=== PATIENT | male | born 1960 | race Caucasian/White ===

== ENCOUNTER 2018-11-24 07:08 | Inpatient (IN) ==
[2018-11-18 15:20] LABS: Basophils # (Auto) 0.1 K/mcL (0.0-0.3); Eosinophils # (Auto) 0.3 K/mcL (0.0-0.7); Eosinophils % (Auto) 4.3 % (0.0-7.0); Granulocytes % (Auto) 62.8 % (38.0-78.0); Lymphocytes # (Auto) 1.3 K/mcL (1.5-4.8); Lymphocytes % (Auto) 22.4 % (15.5-49.0); Mean Cell Volume 89.9 fL (80.0-100.0); Mean Corpuscular HGB Conc 32.9 g/dL (31.0-36.0); Monocytes # (Auto) 0.6 K/mcL (0.1-0.9); Monocytes % (Auto) 9.5 % (1.0-12.0); Platelet Count 205 K/mcL (140-440); RBC 5.78 M/mcL (4.50-5.90); Red Cell Distribution Width 14.1 % (11.5-14.5)
[2018-11-18 15:30] LABS: Blood Urea Nitrogen 14 mg/dl (6-20)
[2018-11-18 16:18] LABS: Appearance,Urine CLEAR; Bacteria,Urine 0 /hpf (0); Bilirubin,Urine NEG (NEG); Color,Urine YELLOW; Glucose,Urine (UA) NEGATIVE (NEG); Leukocyte Esterase,Urine NEG /uL (NEG); Mucus,Urine FEW /hpf (0); Protein,Urine NEG (NEG); Specific Gravity,Urine 1.011 (1.000-1.035); Urine Blood 0.03 mg/dL (<0.03); Urine RBC 0 /hpf (0-1); Urine Squamous Epithelial Cell < 1 /hpf (0-4); Urine WBC < 1 /hpf (0-4); Urobilinogen,Urine NEG (NEG)
[~2018-11-24 07:08] MED LIST: 0.9 % SODIUM CHLORIDE 9 ML, KETOROLAC 30 MG, ROPIVACAINE HCL/PF 49.5 ML, EPINEPHrine 0.... IJ SCH; PREGABALIN 75 MG CAPSULE PO SCH; ceFAZolin 1 GM VIAL IV SCH; oxyCODONE 10 MG TAB.ER.12H PO SCH
[2018-11-24] MEDS ORDERED: PHENYLEPHRINE 10 MG/ML VIAL IV ONE (13:10)
[2018-11-24] MEDS ORDERED: ONDANSETRON 4 MG/2 ML VIAL IV ONE (13:10)
[2018-11-24] MEDS ORDERED: GLYCOPYRROLATE 0.2 MG/ML VIAL IV ONE (13:10)
[2018-11-24] MEDS ORDERED: DEXAMETHASONE 10 MG/ML VIAL IV ONE (13:10)
[2018-11-24] MEDS ORDERED: LIDOCAINE HCL/PF 100 MG/5 ML SYRINGE IV ONE (13:10)
[2018-11-24] MEDS ORDERED: TRANEXAMIC ACID 1,000 MG/10 ML VIAL IV ONE ×2 (13:10→15:09)
[2018-11-24] MEDS ORDERED: ROPIVACAINE HCL/PF 20 ML VIAL IJ ONE (13:10)
[2018-11-24] MEDS ORDERED: MIDAZOLAM 5 MG/5 ML VIAL IV ONE (13:10)
[2018-11-24] MEDS ORDERED: ePHEDrine 50 MG/ML AMPUL IV ONE (13:10)
[2018-11-24] MEDS ORDERED: KETAMINE 100 MG/ML ML IV ONE (13:10)
[2018-11-24] MEDS ORDERED: PROPOFOL 200 MG/20 ML VIAL IV ONE (13:10)
[2018-11-24] MEDS ORDERED: GENTAMICIN SULFATE 800 MG/20 ML VIAL IR ONE (13:47)
[2018-11-24] MEDS ORDERED: ONDANSETRON 4 MG/2 ML VIAL IV PRN ×2 (15:05→15:09)
[2018-11-24] MEDS ORDERED: MEPERIDINE 25 MG/ML SYRINGE IV PRN (15:05)
[2018-11-24] MEDS ORDERED: FLUMAZENIL 0.1 MG/ML ML IV PRN (15:05)
[2018-11-24] MEDS ORDERED: LACTATED RINGERS 250 ML IV PRN (15:05)
[2018-11-24] MEDS ORDERED: BENZOCAINE/MENTHOL 1 LOZENGE PO PRN ×2 (15:05→15:09)
[2018-11-24] MEDS ORDERED: IPRATROPIUM/ALBUTEROL 3 ML AMPUL.NEB NEB PRN (15:05)
[2018-11-24] MEDS ORDERED: ACETAMINOPHEN 1,000 MG/100 ML BOTTLE IV ONE (15:05)
[2018-11-24] MEDS ORDERED: NALOXONE HCL 0.4 MG/ML VIAL IV PRN (15:05)
[2018-11-24] MEDS ORDERED: fentaNYL 100 MCG/2 ML VIAL IV PRN (15:05)
[2018-11-24] MEDS ORDERED: METHOCARBAMOL 1,000 MG/10 ML VIAL IV PRN (15:05)
--- NOTE | 2018-11-24 15:08 | Brief Operative Note ---
Pre-op diagnosis: right knee osteoarthritis Post-op diagnosis: same Procedure: right total knee arthroplasty Grafts/Implants: Yes Anesthesia: spinal Complications: none Surgeon: Dimitrios Billy Room Cleaner: Zakiya Diamond Estimated blood loss (cc): 150 Tourniquet Time (Minutes): 81 Specimens Removed/Pathology: none sent Condition: stable Disposition: PACU
[2018-11-24] MEDS ORDERED: POLYETHYLENE GLYCOL 3350 17 GM PACKET PO PRN (15:09)
[2018-11-24] MEDS ORDERED: MAGNESIUM HYDROXIDE 30 ML ORAL.SUSP PO PRN (15:09)
[2018-11-24] MEDS ORDERED: ONDANSETRON 4 MG ODT TABLET SL PRN (15:09)
[2018-11-24] MEDS ORDERED: FLEETS ADULT ENEMA PR PRN (15:09)
[2018-11-24] MEDS ORDERED: BISACODYL 10 MG SUPP.RECT PR PRN (15:09)
[2018-11-24] MEDS ORDERED: LACTATED RINGERS 1,000 ML IV SCH (15:15)
--- NOTE | 2018-11-24 15:51 | Operative Note ---
DATE OF OPERATION: 11/24/2018 PREOPERATIVE DIAGNOSIS: Degenerative joint disease, right knee. POSTOPERATIVE DIAGNOSIS: Degenerative joint disease, right knee. PROCEDURE: Right total knee arthroplasty. SURGEON: Malgorzata Billy M.D. FISH FARM MANAGER SURGEON: Zakyia Diamond PA-C ANESTHESIA: Spinal with LMA assist. ESTIMATED BLOOD LOSS: 150 mL COMPLICATIONS: None noted. SPECIMENS REMOVED: None. DRAINS: None. TOURNIQUET TIME: 81 minutes at 300 mmHg. IMPLANTS: DePuy CMW2 bone cement 20 grams x6, DePuy Attune tibial based fixed bearing size 8 cemented, DePuy Attune femoral posterior stabilized size 8 right cemented, DePuy Attune patella medialized dome 41 mm cemented AOX, DePuy Attune tibial insert fixed bearing posterior stabilized size 8, 8 mm AOX. INDICATIONS: The patient has had a long-standing history of worsening pain in the knee that has failed conservative treatment. Radiographs have confirmed advanced degenerative joint disease. After a long discussion about treatment options, the patient elected to proceed with a knee arthroplasty. The risks and benefits were discussed with the patient in detail including, but not limited to, the risks of anesthesia, problems with the heart or lungs related to anesthesia, infection, compromise or injury to the nerves and blood vessels, deep venous thrombosis, pulmonary embolism, pneumonia, continued pain after surgery, worsening pain or symptoms after surgery, swelling, loss of motion, instability, leg length discrepancy, and need for repeat surgery. DESCRIPTION OF PROCEDURE: The patient was seen in the pre-anesthesia waiting room where all questions were answered and the correct side and site were identified and marked. The patient was transferred to the operating room and administered the anesthetic and given pre-operative antibiotics. A time-out was then called. The extremity was prepped and draped, exsanguinated, and the tourniquet was inflated to 300 mmHg. A midline skin incision was then made with a standard medial parapatellar arthrotomy. Debridement of the menisci, ACL, and PCL was performed followed by balancing releases in the medial lateral plane. We then established intramedullary access to both the femur and tibia in a standard fashion. The femoral guide johnny was initially placed with the distal femoral guide, pinned into place, and the distal femoral cut was performed and checked with a flat plate. We then turned our attention to the tibia. The intramedullary guide was placed with the proximal tibial cutting block. The block was appropriately positioned off the affected side, varus and valgus was checked with the extra-medullary guide, and the block was pinned into place. The proximal tibial cut was performed and the tibia was prepared for the tibial implant with appropriate rotation. The tibia, femur, and posterior compartment were debrided of osteophytes, loose bodies, and meniscal fragments We then used the gap balancing technique to balance extension with the first two cuts and good balancing was obtained with a 10 millimeter gap block. We turned our attention back to the femur and used the referencing block and implant to size appropriately. Using the gap balancing technique for the flexion space we set our rotation of the femur off the tibial cut. Anesthesia gave the patient 1 gram of Tranexamic Acid via an intravenous route. We placed the 4 in 1 cutting block and made anterior, posterior, and chamfer cuts. Box plasty cuts were then made in a standard fashion for the posterior stabilized prosthesis. We then completed osteophyte release and posterior capsule release from the posterior compartment. Trials were placed and we chose the polyethylene insert thickness that provided the best stability in all planes. With the trials in place, we did a measured resection for a resurfacing patella. We sized the patella and placed the patella trial and performed a lateral facetectomy with the saw and rongeur. Good tracking was obtained. We removed all trials, irrigated and dried all cut surfaces. We cemented the components into place including tibia, femur and patella. We placed a trial liner and held the knee in full extension with the patella compressed while the cement cured. We then removed all excess cement and placed the final polyethylene tibiofemoral component. Irrigation with 3 liters of antibiotic saline was then performed using jet-lavage. We let the tourniquet down and coagulated bleeding vessels. We injected a 100 cubic centimeter volume including Ropivacaine 49.25 cubic centimeters at 5 milligrams per cubic centimeter, Ketorolac 30 milligrams, and Epinephrine 0.5 milligrams into 100 cubic centimeters volume of normal saline. We closed the retinaculum with #2 Stratafix and #0 Vicryl. We closed the subcutaneous tissue and skin in layers out to Dermabond on the skin. A sterile pressure dressing was applied. All needle and sponge counts were correct. The patient was transferred to the recovery room in stable condition. CHERYL:sofía Job ID: [id number] Doc ID: [id number] Malgorzata Billy MD
--- NOTE | 2018-11-24 15:52 | XRay Report ---
CLINICAL INFORMATION: Post-Op Total Knee COMPARISON: None. FINDINGS: Total knee prosthesis is anatomically aligned. No osseous abnormality. Soft tissue swelling seen in the expected IMPRESSION: Negative Interpreted and Authenticated by: Dimitrios Cason 11/24/18
[2018-11-24] MEDS: KETOROLAC 15 MG/ML VIAL IV SCH ×2 (18:18→23:51)
[2018-11-24] MEDS: 0.9 % SODIUM CHLORIDE 1,000 ML IV SCH (18:25)
[2018-11-24] MEDS: ceFAZolin 1 GM VIAL IV SCH (20:11)
[2018-11-24] MEDS: ASPIRIN 325 MG ENTERIC COATED TABLET PO SCH (20:12)
[2018-11-24] MEDS: DOCUSATE SODIUM 100 MG CAPSULE PO SCH (20:12)
[2018-11-24] MEDS: HYDROcodone/APAP 10/325MG TABLET PO PRN (20:13)
[2018-11-24] MEDS: 0.9 % SODIUM CHLORIDE 10 ML SYRINGE IV SCH (20:25)
[2018-11-24] MEDS ORDERED: FAMOTIDINE 20 MG TABLET PO SCH (21:00)
[2018-11-24] MEDS ORDERED: diphenhydrAMINE 25 MG CAPSULE PO SCH (21:00)
[2018-11-24] MEDS ORDERED: LISINOPRIL 10 MG TABLET PO SCH (21:00)
[2018-11-24] MEDS ORDERED: CITALOPRAM 20 MG TABLET PO SCH (21:00)
[2018-11-24] MEDS ORDERED: SENNOSIDES 1 TABLET PO SCH (21:00)
[2018-11-25] MEDS: HYDROcodone/APAP 10/325MG TABLET PO PRN ×4 (00:05→16:38)
[2018-11-25] MEDS: 0.9 % SODIUM CHLORIDE 1,000 ML IV SCH (00:49)
[2018-11-25] MEDS: ceFAZolin 1 GM VIAL IV SCH (04:25)
[2018-11-25] MEDS: 0.9 % SODIUM CHLORIDE 10 ML SYRINGE IV SCH (04:25)
[2018-11-25] MEDS: KETOROLAC 15 MG/ML VIAL IV SCH ×2 (05:50→11:53)
[2018-11-25] MEDS: METHOCARBAMOL 750 MG TABLET PO PRN ×2 (07:12→16:38)
--- NOTE | 2018-11-25 07:37 | Orthopedic Progress Note ---
Subjective Patient information: Note initiated : 11/25/18 at 7:36 am Service Date, if different from initiated Date: [] Patient: Raheem Patton 58 y/o M admitted on 11/24/18 for Right Total Knee Arthroplasty. Chief Complaint: [] Interval history: doing well. no complaints Objective Vital signs: Vital Signs Temp Pulse Resp BP BP Pulse Ox 11/25/18 06:59 97.8 F 67 18 126/76 93 11/25/18 03:10 97.8 F 60 18 127/67 94 11/25/18 00:00 97.8 F 72 18 93/64 91 11/24/18 19:54 97.4 F 70 18 123/75 93 11/24/18 19:11 75 127/77 94 11/24/18 18:12 74 121/76 97 11/24/18 17:26 64 135/68 96 11/24/18 17:12 59 L 136/91 96 11/24/18 16:57 71 125/64 96 11/24/18 16:41 65 110/65 96 11/24/18 16:25 96.9 F L 65 16 125/72 96 11/24/18 16:20 65 16 96 11/24/18 16:10 97.6 F 60 15 124/81 100 11/24/18 15:51 97.6 F 66 18 129/71 98 11/24/18 15:35 98.0 F 69 20 154/72 100 11/24/18 15:31 73 17 138/85 99 11/24/18 15:26 77 14 130/68 100 11/24/18 15:21 97.5 F 92 H 14 146/79 100 11/24/18 08:00 98.0 F 64 18 161/93 94 Intake and Output 11/24/18 11/25/18 11/25/18 21:59 05:59 13:59 Intake Total 2660 / 4620 1960 / 4620 800 / 800 Output Total 1325 / 1325 325 / 325 Balance 2660 / 3295 635 / 3295 475 / 475 Intake: IV 100 / 900 800 / 900 Sodium Chloride 0.9% 1,000 ml @ 800 / 800 125 mls/hr IV .Q8H [facility] Rx#: [id number] Oral 1160 / 2320 1160 / 2320 800 / 800 IV - Manual Only 1400 / 1400 Output: Void Amount 1325 / 1325 325 / 325 Other: Meal Dinner [place] sandwich Percent of Meal Consumed 100% 100% Feeding Ability Independent Independent Urine Appearance Clear Clear Clear Straight Clear Urine Color Bright Yellow Bright Yellow Straight Pale Weight 320 lb Intake & Output: Intake & Output 11/24/18 11/25/18 11/25/18 21:59 05:59 13:59 Intake Total 2660 / 4620 1960 / 4620 800 / 800 Output Total 1325 / 1325 325 / 325 Balance 2660 / 3295 635 / 3295 475 / 475 Weight 320 lb Intake: IV 100 / 900 800 / 900 Sodium Chloride 0.9% 1,000 ml @ 800 / 800 125 mls/hr IV .Q8H [facility] Rx#: [id number] Oral 1160 / 2320 1160 / 2320 800 / 800 IV - Manual Only 1400 / 1400 Output: Void Amount 1325 / 1325 325 / 325 Other: Meal Dinner Se[place] sandwich Percent of Meal Consumed 100% 100% Feeding Ability Independent Independent Urine Appearance Clear Clear Clear Straight Clear Urine Color Bright Yellow Bright Yellow Straight Pale Incision: Yes healing Incision clean and dry: Yes Dressing: Yes clean, Yes dry, Yes intact Weight bearing status: full Neurological exam IM: No abnormal gait, Yes alert, Yes normal gait, Yes oriented X3, Yes motor sensory intact, Yes neurovascular intact Extremities exam IM: No calf tenderness, Yes Foot pink and warm, Yes neurovascular intact - Labs CBC & BMP: 11/25/18 04:58 11/18/18 13:08 Labs: 11/25/18 11/18/18 04:58 13:08 Hgb 14.5 17.1 H Hct 44.3 51.9 Assessment and Plan (1) Knee osteoarthritis pod 1 s/p tka wbat pain control dvt prophylaxis d/c planning Status: Acute
--- NOTE | 2018-11-25 07:39 | Discharge Summary ---
Ortho Discharge - TKA - Patient Instructions Diet: Regular Diet Activity: activity as tolerated, ambulate with assistive device, weight bearing as tolerated Total Knee Protocol: For Total Knee: Start ROM LINDSEY with stationary bike or rocking chair. Work on gaining full extension of knee. Posterior dislocation precautions provided. Hip abductor strengthening and gait training instructions provided. Apply Cryocuff as instructed. Dressing Care: May shower in 2 days - Problem Maintenance (1) Knee osteoarthritis Status: Acute - Follow Up Plan Disposition: Home, Self-Care Prognosis: Good Rehab Potential: Good I certify that the patient requires SNF services: No Overall status at discharge: patient is progressing back to baseline
[2018-11-25] MEDS: DOCUSATE SODIUM 100 MG CAPSULE PO SCH (08:54)
[2018-11-25] MEDS: ASPIRIN 325 MG ENTERIC COATED TABLET PO SCH (08:54)
[2018-11-25] MEDS ORDERED: KETOROLAC 30 MG/ML VIAL IV SCH (18:00)
== END 2018-11-25 16:50 | disposition home or self-care (01) | DRG 470 ==
LOC: MEDSUR 07:08
PROVIDERS: ADMIT Orthopaedic Surgery Sports Medicine; ATTEND Orthopaedic Surgery Sports Medicine

== ENCOUNTER 2019-04-13 04:48 | Inpatient (IN) ==
[2019-04-07 15:05] LABS: Appearance,Urine CLEAR; Bacteria,Urine 0 /hpf (0); Bilirubin,Urine NEG (NEG); Color,Urine YELLOW; Culture Indicated,Urine NO; Glucose,Urine (UA) NEGATIVE (NEG); Ketones,Urine NEG (NEG); Leukocyte Esterase,Urine NEG /uL (NEG); Mucus,Urine FEW /hpf (0); Nitrate,Urine NEG (NEG); Protein,Urine NEG (NEG); Specific Gravity,Urine 1.012 (1.000-1.035); Urine Blood 0.03 mg/dL (<0.03); Urine RBC < 1 /hpf (0-1); Urine Squamous Epithelial Cell 0 /hpf (0-4); Urine WBC 0 /hpf (0-4); Urobilinogen,Urine NEG (NEG)
[2019-04-07 16:55] LABS: INR 0.9 (0.9-1.1); Prothrombin Time 12.5 sec (11.9-14.5)
[2019-04-07 16:56] LABS: Basophils # (Auto) 0.1 K/mcL (0.0-0.3); Basophils % (Auto) 0.7 % (0.0-2.0); Eosinophils # (Auto) 0.4 K/mcL (0.0-0.7); Eosinophils % (Auto) 4.6 % (0.0-7.0); Granulocytes % (Auto) 70.1 % (38.0-78.0); Hematocrit 51.7 % (41.0-55.0); Hemoglobin 16.8 g/dL (13.5-16.5); Lymphocytes # (Auto) 1.6 K/mcL (1.5-4.8); Lymphocytes % (Auto) 16.9 % (15.5-49.0); Mean Cell Volume 89.8 fL (80.0-100.0); Mean Corpuscular HGB Conc 32.5 g/dL (31.0-36.0); Mean Platelet Volume 11.5 fL (7.4-10.4); Monocytes # (Auto) 0.7 K/mcL (0.1-0.9); Monocytes % (Auto) 7.7 % (1.0-12.0); Platelet Count 237 K/mcL (140-440); RBC 5.76 M/mcL (4.50-5.90); Red Cell Distribution Width 15.1 % (11.5-14.5); WBC 9.3 K/mcL (4.5-11.0)
[2019-04-07 17:01] LABS: Blood Urea Nitrogen 18 mg/dl (6-20); Calcium 9.7 mg/dl (8.6-10.4); Carbon Dioxide 21 mmol/L (22-30); Chloride 105 mmol/L (96-108); Glomerular Filtration Rate 65; Glucose 108 mg/dL (70-105); Potassium 4.3 mmol/L (3.3-5.1); Sodium 142 mmol/L (133-145)
[2019-04-13] MEDS ORDERED: IPRATROPIUM/ALBUTEROL 3 ML AMPUL.NEB NEB PRN ×2 (05:00→08:21)
[2019-04-13] MEDS ORDERED: SCOPOLAMINE 1 PATCH PATCH TOPICAL PRN (05:00)
[2019-04-13] MEDS ORDERED: 0.9 % SODIUM CHLORIDE 9 ML, KETOROLAC 30 MG, ROPIVACAINE HCL/PF 49.5 ML, EPINEPHrine 0.... IJ SCH (06:00)
[2019-04-13] MEDS ORDERED: oxyCODONE 10 MG TAB.ER.12H PO SCH (06:00)
[2019-04-13] MEDS ORDERED: PREGABALIN 75 MG CAPSULE PO SCH (06:00)
[2019-04-13] MEDS ORDERED: ceFAZolin 3 GM in DEXTROSE 5% IN WATER 50 ML IV SCH (06:00)
[2019-04-13] MEDS ORDERED: LIDOCAINE HCL/PF 100 MG/5 ML SYRINGE IV ONE (07:30)
[2019-04-13] MEDS ORDERED: PROPOFOL 200 MG/20 ML VIAL IV ONE (07:30)
[2019-04-13] MEDS ORDERED: TRANEXAMIC ACID 1,000 MG/10 ML VIAL IV ONE ×2 (07:30→09:19)
[2019-04-13] MEDS ORDERED: PHENYLEPHRINE 10 MG/ML VIAL IV ONE (07:30)
[2019-04-13] MEDS ORDERED: ONDANSETRON 4 MG/2 ML VIAL IV ONE (07:30)
[2019-04-13] MEDS ORDERED: ROPIVACAINE HCL/PF 20 ML VIAL IJ ONE (07:30)
[2019-04-13] MEDS ORDERED: ePHEDrine 50 MG/ML AMPUL IV ONE (07:30)
[2019-04-13] MEDS ORDERED: MIDAZOLAM 2 MG/2 ML VIAL IV ONE (07:30)
[2019-04-13] MEDS ORDERED: DEXAMETHASONE 10 MG/ML VIAL IV ONE (07:30)
[2019-04-13] MEDS ORDERED: GLYCOPYRROLATE 0.2 MG/ML VIAL IV ONE (07:30)
[2019-04-13] MEDS ORDERED: GENTAMICIN SULFATE 800 MG/20 ML VIAL IR ONE (08:11)
[2019-04-13] MEDS ORDERED: ONDANSETRON 4 MG/2 ML VIAL IV PRN ×2 (08:21→09:19)
[2019-04-13] MEDS ORDERED: BENZOCAINE/MENTHOL 1 LOZENGE PO PRN ×2 (08:21→09:19)
[2019-04-13] MEDS ORDERED: METHOCARBAMOL 1,000 MG/10 ML VIAL IV PRN (08:21)
[2019-04-13] MEDS ORDERED: FLUMAZENIL 0.1 MG/ML ML IV PRN (08:21)
[2019-04-13] MEDS ORDERED: LACTATED RINGERS 250 ML IV PRN (08:21)
[2019-04-13] MEDS ORDERED: fentaNYL 100 MCG/2 ML VIAL IV PRN (08:21)
[2019-04-13] MEDS ORDERED: KETOROLAC 15 MG/ML VIAL IV PRN (08:21)
[2019-04-13] MEDS ORDERED: ACETAMINOPHEN 1,000 MG/100 ML BOTTLE IV ONE (08:21)
[2019-04-13] MEDS ORDERED: NALOXONE HCL 0.4 MG/ML VIAL IV PRN (08:21)
[2019-04-13] MEDS ORDERED: LACTATED RINGERS 1,000 ML IV SCH (08:30)
--- NOTE | 2019-04-13 09:17 | Brief Operative Note ---
Date of procedure: 04/13/19 Pre-op diagnosis: left knee osteoarthritis Post-op diagnosis: same Procedure: left total knee arthroplasty Grafts/Implants: Yes Anesthesia: spinal Complications: none Surgeon: Dimitrios Billy Fur Mixer: Zakiya Diamond Estimated blood loss (cc): 150 Tourniquet Time (Minutes): 54 Specimens Removed/Pathology: none sent Condition: stable Disposition: PACU
[2019-04-13] MEDS ORDERED: MAGNESIUM HYDROXIDE 30 ML ORAL.SUSP PO PRN (09:19)
[2019-04-13] MEDS ORDERED: ONDANSETRON 4 MG ODT TABLET SL PRN (09:19)
[2019-04-13] MEDS ORDERED: POLYETHYLENE GLYCOL 3350 17 GM PACKET PO PRN (09:19)
[2019-04-13] MEDS ORDERED: FLEETS ADULT ENEMA PR PRN (09:19)
[2019-04-13] MEDS ORDERED: BISACODYL 10 MG SUPP.RECT PR PRN (09:19)
[2019-04-13] MEDS ORDERED: 0.9 % SODIUM CHLORIDE 1,000 ML IV SCH (09:30)
--- NOTE | 2019-04-13 10:06 | XRay Report ---
CLINICAL INFORMATION: Post-Op Total Knee COMPARISON: None. FINDINGS: Total knee prosthesis is anatomically aligned. No osseous abnormality. Periarticular soft tissue swelling seen as expected IMPRESSION: Negative Interpreted and Authenticated by: Dimitrios Cason 04/13/19
--- NOTE | 2019-04-13 10:45 | Operative Note ---
DATE OF OPERATION: 04/13/2019 PREOPERATIVE DIAGNOSIS: Degenerative joint disease, left knee. POSTOPERATIVE DIAGNOSIS: Degenerative joint disease, left knee. PROCEDURE: Left total knee arthroplasty. SURGEON: Malgorzata Billy M.D. RESIDENT INTERN SURGEON: Zakiya Diamond PA-C. The PA's assistance was required for the safe and efficient completion of the entire case. This provider's expertise and technical skill were required throughout the case. The PA assisted with preoperative coordination, intraoperative retraction, wound closure, dressing and splint application, as well as postoperative documentation and care coordination. ANESTHESIA: Spinal with LMA assist. ESTIMATED BLOOD LOSS: 150 mL COMPLICATIONS: None noted. SPECIMENS REMOVED: None. DRAINS: None. TOURNIQUET TIME: 54 minutes at 300 mmHg. IMPLANTS: DePuy CMW2 bone cement 20 grams x5, DePuy Attune femoral posterior stabilized size 9 left cemented, DePuy Attune tibial insert fixed bearing posterior stabilized size 9, 6 mm AOX, DePuy Attune tibial based fixed bearing size 8 cemented, DePuy Attune patella medialized dome 41 mm cemented AOX. INDICATIONS: The patient has had a long-standing history of worsening pain in the knee that has failed conservative treatment. Radiographs have confirmed advanced degenerative joint disease. After a long discussion about treatment options, the patient elected to proceed with a knee arthroplasty. The risks and benefits were discussed with the patient in detail including, but not limited to, the risks of anesthesia, problems with the heart or lungs related to anesthesia, infection, compromise or injury to the nerves and blood vessels, deep venous thrombosis, pulmonary embolism, pneumonia, continued pain after surgery, worsening pain or symptoms after surgery, swelling, loss of motion, instability, leg length discrepancy, and need for repeat surgery. DESCRIPTION OF PROCEDURE: The patient was seen in the pre-anesthesia waiting room where all questions were answered and the correct side and site were identified and marked. The patient was transferred to the operating room and administered the anesthetic and given pre-operative antibiotics. A time-out was then called. The extremity was prepped and draped, exsanguinated, and the tourniquet was inflated to 300 mmHg. A midline skin incision was then made with a standard medial parapatellar arthrotomy. Debridement of the menisci, ACL, and PCL was performed followed by balancing releases in the medial lateral plane. We then established intramedullary access to both the femur and tibia in a standard fashion. The femoral guide johnny was initially placed with the distal femoral guide, pinned into place, and the distal femoral cut was performed and checked with a flat plate. We then turned our attention to the tibia. The intramedullary guide was placed with the proximal tibial cutting block. The block was appropriately positioned off the affected side, varus and valgus was checked with the extra-medullary guide, and the block was pinned into place. The proximal tibial cut was performed and the tibia was prepared for the tibial implant with appropriate rotation. The tibia, femur, and posterior compartment were debrided of osteophytes, loose bodies, and meniscal fragments We then used the gap balancing technique to balance extension with the first two cuts and good balancing was obtained with a 10 millimeter gap block. We turned our attention back to the femur and used the referencing block and implant to size appropriately. Using the gap balancing technique for the flexion space we set our rotation of the femur off the tibial cut. Anesthesia gave the patient 1 gram of Tranexamic Acid via an intravenous route. We placed the 4 in 1 cutting block and made anterior, posterior, and chamfer cuts. Box plasty cuts were then made in a standard fashion for the posterior stabilized prosthesis. We then completed osteophyte release and posterior capsule release from the posterior compartment. Trials were placed and we chose the polyethylene insert thickness that provided the best stability in all planes. With the trials in place, we did a measured resection for a resurfacing patella. We sized the patella and placed the patella trial and performed a lateral facetectomy with the saw and rongeur. Good tracking was obtained. We removed all trials, irrigated and dried all cut surfaces. We cemented the components into place including tibia, femur and patella. We placed a trial liner and held the knee in full extension with the patella compressed while the cement cured. We then removed all excess cement and placed the final polyethylene tibiofemoral component. Irrigation with 3 liters of antibiotic saline was then performed using jet-lavage. We let the tourniquet down and coagulated bleeding vessels. We injected a 100 cubic centimeter volume including Ropivacaine 49.25 cubic centimeters at 5 milligrams per cubic centimeter, Ketorolac 30 milligrams, and Epinephrine 0.5 milligrams into 100 cubic centimeters volume of normal saline. We closed the retinaculum with #2 Stratafix and 0 Vicryl. We closed the subcutaneous tissue and skin in layers out to Dermabond on the skin. A sterile pressure dressing was applied. All needle and sponge counts were correct. The patient was transferred to the recovery room in stable condition. JShayla:sofía Job ID: [id number] Doc ID: [id number] Malgorzata Billy MD
[2019-04-13] MEDS: KETOROLAC 15 MG/ML VIAL IV SCH ×3 (12:31→23:56)
[2019-04-13] MEDS: 0.9 % SODIUM CHLORIDE 10 ML SYRINGE IV SCH ×2 (14:08→23:57)
[2019-04-13] MEDS: ceFAZolin 1 GM VIAL IV SCH ×2 (15:14→23:56)
[2019-04-13] MEDS: METHOCARBAMOL 750 MG TABLET PO PRN (19:16)
[2019-04-13] MEDS: SENNOSIDES 1 TABLET PO SCH (20:38)
[2019-04-13] MEDS: LISINOPRIL 10 MG TABLET PO SCH (20:38)
[2019-04-13] MEDS: CITALOPRAM 20 MG TABLET PO SCH (20:38)
[2019-04-13] MEDS: rOPINIRole 0.25 MG TABLET PO SCH (20:38)
[2019-04-13] MEDS: ASPIRIN 325 MG ENTERIC COATED TABLET PO SCH (20:38)
[2019-04-13] MEDS: FAMOTIDINE 20 MG TABLET PO SCH (20:38)
[2019-04-13] MEDS: DOCUSATE SODIUM 100 MG CAPSULE PO SCH (20:39)
[2019-04-13] MEDS: buPROPion 100 MG TABLET PO SCH (20:39)
[2019-04-13] MEDS: HYDROcodone/APAP 10/325MG TABLET PO PRN (20:47)
[2019-04-14] MEDS: KETOROLAC 15 MG/ML VIAL IV SCH ×4 (04:49→23:29)
[2019-04-14] MEDS: HYDROcodone/APAP 10/325MG TABLET PO PRN ×5 (04:50→22:45)
[2019-04-14] MEDS: 0.9 % SODIUM CHLORIDE 10 ML SYRINGE IV SCH ×3 (04:51→23:29)
[2019-04-14 05:39] LABS: Hematocrit 37.9 % (41.0-55.0); Hemoglobin 12.6 g/dL (13.5-16.5)
--- NOTE | 2019-04-14 07:34 | Orthopedic Progress Note ---
Subjective Patient information: Note initiated : 04/14/19 at 7:32 am Service Date, if different from initiated Date: [] Patient: Raheem Patton 58 y/o M admitted on 04/13/19 for Left Total Knee Arthroplasty. Chief Complaint: [POD #1 s/p left TKA Patient doing well overall however left knee dressing bled significantly overnight and was reinforced. Denies severe pain, no CP, SOB, numbness, tingling or calf pain. Ambulating okay. Denies dizziness] Objective Vital signs: Vital Signs Temp Pulse Resp BP Pulse Ox 04/14/19 04:37 98.5 F 73 18 130/63 92 04/13/19 23:48 98.6 F 67 18 133/72 95 04/13/19 19:51 97.6 F 78 20 119/69 93 04/13/19 16:51 97.4 F 71 112/54 94 04/13/19 13:16 79 124/76 95 04/13/19 12:15 72 128/71 92 04/13/19 11:45 68 131/75 93 04/13/19 11:15 76 123/80 97 04/13/19 10:46 72 118/67 92 04/13/19 10:31 72 140/89 95 04/13/19 10:30 95 04/13/19 10:15 65 107/59 95 04/13/19 10:00 97.7 F 64 16 122/63 97 04/13/19 09:45 98.7 F 68 14 130/67 98 04/13/19 09:40 66 13 114/59 100 04/13/19 09:35 72 15 125/68 100 04/13/19 09:30 98.0 F 73 18 148/78 98 Intake and Output 04/13/19 04/14/19 04/14/19 21:59 05:59 13:59 Intake Total 2150 0 Output Total 1425 225 Balance 725 -225 Intake: Oral 2150 0 Output: Void Amount 1425 225 Other: Urine Appearance Clear Clear Urine Color Bright Yellow Straw Urine Odor Normal Normal # Voids 1 Weight 321 lb 9.6 oz Intake & Output: Intake & Output 04/13/19 04/14/19 04/14/19 21:59 05:59 13:59 Intake Total 2150 0 Output Total 1425 225 Balance 725 -225 Weight 321 lb 9.6 oz Intake: Oral 2150 0 Output: Void Amount 1425 225 Other: Urine Appearance Clear Clear Urine Color Bright Yellow Straw Urine Odor Normal Normal # Voids 1 Incision: Yes healing, Yes draining, No swollen, No inflamed Weight bearing status: as tolerated Range of motion: full foot and ankle Neurological exam IM: Yes alert, Yes oriented X3, Yes motor sensory intact, Yes neurovascular intact Extremities exam IM: Yes Foot pink and warm, Yes neurovascular intact - Periperhal Pulses Peripheral pulses: 2+: dorsalis pedis (L), dorsalis pedis (R), posterior tibialis (L), posterior tibialis (R) - Labs CBC & BMP: 04/14/19 04:34 04/07/19 13:08 Labs: Orthopedic Labs 04/07/19 13:02 PT 12.5 INR 0.9 04/14/19 04/07/19 04:34 13:02 Hgb 12.6 L 16.8 H Hct 37.9 L 51.7 Assessment and Plan (1) Knee osteoarthritis POD #1 s/p left TKA: -bloody drainage likely 2/2 to venous tourniquet during surgery. Given the extent of blood, would like to watch this closely. I removed old dressing and replaced dressing completely, reinforcing with ABD and gauze. We will remove sarah ssing this afternoon and replace if necessary. Ice, elevate and compress. WBAT. No flexion past 60 degrees for now. PT instructions given -discussed with patient will likely watch overnight tonight to ensure no bleeding/drainage before d/c to home Status: Acute Exam Vital signs: Temp Pulse Resp BP Pulse Ox 98.5 F 73 18 130/63 92 04/14/19 04:37 04/14/19 04:37 04/14/19 04:37 04/14/19 04:37 04/14/19 04:37 Constitutional: no acute distress Musculoskeletal: other (dressing removed. Dermabond intact on the skin. Small area of blood drainage, actively draining mid incision without dehisence. Dermabond well adhered to the skin)
[2019-04-14] MEDS: buPROPion 100 MG TABLET PO SCH ×2 (09:09→21:05)
[2019-04-14] MEDS: ASPIRIN 325 MG ENTERIC COATED TABLET PO SCH ×2 (09:10→21:08)
[2019-04-14] MEDS: DOCUSATE SODIUM 100 MG CAPSULE PO SCH ×2 (09:11→21:07)
[2019-04-14] MEDS: rOPINIRole 0.25 MG TABLET PO SCH (21:07)
[2019-04-14] MEDS: FAMOTIDINE 20 MG TABLET PO SCH (21:07)
[2019-04-14] MEDS: LISINOPRIL 10 MG TABLET PO SCH (21:07)
[2019-04-14] MEDS: CITALOPRAM 20 MG TABLET PO SCH (21:08)
[2019-04-14] MEDS: SENNOSIDES 1 TABLET PO SCH (21:08)
[2019-04-14] MEDS: METHOCARBAMOL 750 MG TABLET PO PRN (23:29)
[2019-04-15] MEDS: HYDROcodone/APAP 10/325MG TABLET PO PRN (04:48)
[2019-04-15 05:19] LABS: Hematocrit 31.8 % (41.0-55.0); Hemoglobin 10.5 g/dL (13.5-16.5)
[2019-04-15] MEDS: KETOROLAC 15 MG/ML VIAL IV SCH (06:09)
[2019-04-15] MEDS: 0.9 % SODIUM CHLORIDE 10 ML SYRINGE IV SCH (06:10)
--- NOTE | 2019-04-15 06:59 | Orthopedic Progress Note ---
Subjective Patient information: Note initiated : 04/15/19 at 6:58 am Service Date, if different from initiated Date: [] Patient: Raheem Patton 58 y/o M admitted on 04/13/19 for Left Total Knee Arthroplasty. Chief Complaint: [] Interval history: doing well. no complaints Objective Vital signs: Vital Signs Temp Pulse Resp BP Pulse Ox 04/15/19 04:07 98.7 F 71 22 139/79 95 04/14/19 22:52 98.5 F 70 22 143/74 97 04/14/19 19:38 98.2 F 72 24 H 136/74 94 04/14/19 15:42 98.5 F 63 20 121/71 94 04/14/19 11:35 98.1 F 68 16 103/70 95 04/14/19 08:08 97.9 F 70 16 92/59 92 Intake and Output 04/14/19 04/15/19 04/15/19 21:59 05:59 13:59 Intake Total 1450 400 Output Total 450 100 Balance 1000 300 Intake: Oral 1450 400 Output: Void Amount 450 100 Other: Urine Appearance Clear Clear Urine Color Dark Yellow Bright Yellow Urine Odor Normal Normal Weight 325 lb 9.6 oz Intake & Output: Intake & Output 04/14/19 04/15/19 04/15/19 21:59 05:59 13:59 Intake Total 1450 400 Output Total 450 100 Balance 1000 300 Weight 325 lb 9.6 oz Intake: Oral 1450 400 Output: Void Amount 450 100 Other: Urine Appearance Clear Clear Urine Color Dark Yellow Bright Yellow Urine Odor Normal Normal Incision: Yes healing Incision clean and dry: Yes Dressing: Yes clean, Yes dry, Yes intact Weight bearing status: full Neurological exam IM: Yes abnormal gait, Yes alert, Yes oriented X3, Yes motor sensory intact, Yes neurovascular intact Extremities exam IM: No calf tenderness, Yes Foot pink and warm, Yes neurovascular intact - Labs CBC & BMP: 04/15/19 03:47 04/07/19 13:08 Labs: Orthopedic Labs 04/07/19 13:02 PT 12.5 INR 0.9 04/15/19 04/14/19 04/07/19 03:47 04:34 13:02 Hgb 10.5 L 12.6 L 16.8 H Hct 31.8 L 37.9 L 51.7
--- NOTE | 2019-04-15 07:01 | Discharge Summary ---
Ortho Discharge - TKA - Patient Instructions Diet: Regular Diet Activity: ambulate with assistive device, weight bearing as tolerated Total Knee Protocol: For Total Knee: Start ROM LINDSEY with stationary bike or rocking chair. Work on gaining full extension of knee. Posterior dislocation precautions provided. Hip abductor strengthening and gait training instructions provided. Apply Cryocuff as instructed. Dressing Care: May shower in 3 days - Follow Up Plan Follow Up Appointments: Dimitrios Billy MD [Physician] - 04/28/19 1:00 pm Disposition: Home, Self-Care Prognosis: Good Rehab Potential: Good I certify that the patient requires SNF services: No Overall status at discharge: patient is progressing back to baseline
[2019-04-15] MEDS: DOCUSATE SODIUM 100 MG CAPSULE PO SCH (08:36)
[2019-04-15] MEDS: ASPIRIN 325 MG ENTERIC COATED TABLET PO SCH (08:36)
[2019-04-15] MEDS: buPROPion 100 MG TABLET PO SCH (09:35)
== END 2019-04-15 11:30 | disposition home or self-care (01) | DRG 470 ==
LOC: MEDSUR 04:48
PROVIDERS: ADMIT Orthopaedic Surgery Sports Medicine; ATTEND Orthopaedic Surgery Sports Medicine

== ENCOUNTER 2024-01-07 11:56 | Inpatient (IN) ==
[2024-01-07] MEDS: 0.9 % SODIUM CHLORIDE 1,000 ML IV ONE ×2 (12:50→16:40)
[2024-01-07] MEDS: ACETAMINOPHEN 1,000 MG/100 ML BAG IV ONE (13:31)
[2024-01-07 13:39] LABS: Basophils # (Auto) 0.03 K/mcL (0.00-0.30); Basophils % (Auto) 0.3 % (0.0-2.0); Eosinophils # (Auto) 0 K/mcL (0.00-0.70); Eosinophils % (Auto) 0 % (0.0-7.0); Hematocrit 42.4 % (40.1-51.0); Hemoglobin 13.1 g/dL (13.7-17.5); Lymphocytes # (Auto) 0.43 K/mcL (1.50-4.80); Lymphocytes % (Auto) 3.7 % (15.5-49.0); Mean Cell Volume 92.2 fL (80.0-100.0); Mean Corpuscular HGB Conc 30.9 g/dL (31.0-36.0); Mean Platelet Volume 11.7 fL (8.8-12.5); Monocytes % (Auto) 6.1 % (1.0-12.0); Neutrophils % (Auto) 89.6 % (38.0-78.0); Platelet Count 214 K/mcL (140-440); Red Cell Distribution Width 16.2 % (11.5-14.5); WBC 11.5 K/mcL (4.5-11.0)
[2024-01-07 13:54] LABS: ABG Methemoglobin 0.2 % (0.4-1.5); Total Hemoglobin 14.3 gm/Dl (13.5-16.5); VBG Base Excess 1 (-2-3); VBG HCO3 26.8 mmol/L (24.0-28.0); VBG Oxygen Saturation 78.9 % (40.0-70.0); VBG PCO2 49.8 mmHg (41.0-51.0); VBG PH 7.35 U (7.32-7.42); VBG PO2 45.2 mmHg (25.0-40.0); VBG Total CO2 28.3 mmol/L (25.0-29.0)
[2024-01-07 13:56] LABS: ALT/SGPT 13 U/L (<40); AST/SGOT 25 U/L (<40); Albumin 3.9 gm/dL (3.2-5.2); Albumin/Globulin Ratio 1.3 (1.0-2.3); Alkaline Phosphatase 101 U/L (39-117); Bilirubin,Total 0.5 mg/dL (0.1-1.0); Blood Urea Nitrogen 13 mg/dL (8-23); Carbon Dioxide 25 mmol/L (22-30); Chloride 99 mmol/L (96-108); Globulin 3.1 gm/dL (2.2-3.7); Glomerular Filtration Rate 79; Glucose 110 mg/dL (70-105)
[2024-01-07] MEDS: cefTRIAXone 1 GM VIAL IV ONE ×2 (14:10→18:55)
[2024-01-07 15:00] LABS: INR 1.1 (0.9-1.1)
[2024-01-07 15:11] LABS: Amphetamine Screen,Urine None detected; Barbiturate Screen,Urine None detected; Benzodiazepines Screen,Urine None detected; Cannabinoid Screen,Urine None detected; Cocaine Screen,Urine None detected; Opiate Screen,Urine None detected; Oxycodone, Urine Screen None detected; Phencyclidine Screen,Urine None detected
[2024-01-07 15:19] LABS: Appearance,Urine CLEAR (Clear); Bilirubin,Urine Negative (Negative); Color,Urine YELLOW; Culture Indicated,Urine Yes; Glucose,Urine (UA) Negative (Negative); Ketones,Urine Negative (Negative); Leukocyte Esterase,Urine 75 /uL (Negative); Nitrate,Urine Negative (Negative); Protein,Urine Negative (Negative); Specific Gravity,Urine 1.017 (1.000-1.035); Urine Budding Yeast FEW /hpf; Urine RBC 35 /hpf (0-3); Urine Squamous Epithelial Cell 0 /hpf (0-4); Urine WBC 44 /hpf (0-4); Urobilinogen,Urine Negative
[2024-01-07] MEDS: VANCOMYCIN 2,000 MG in 0.9 % SODIUM CHLORIDE 500 ML IV ONE (15:20)
[2024-01-07] MEDS: VANCOMYCIN 1,000 MG in 0.9 % SODIUM CHLORIDE 250 ML IV ONE (15:33)
[2024-01-07] MEDS: 0.9 % SODIUM CHLORIDE 1,000 ML IV SCH (18:04)
[2024-01-07] MEDS: cefTRIAXone 2 GM in DEXTROSE 5% IN WATER 50 ML IV SCH (18:52)
[2024-01-07] MEDS: APIXABAN 5 MG TABLET PO SCH (21:21)
[2024-01-07] MEDS: SENNOSIDES 1 TABLET PO SCH (21:21)
[2024-01-07] MEDS: DOCUSATE SODIUM 100 MG CAPSULE PO SCH (21:21)
[2024-01-07] MEDS: GABAPENTIN 300 MG CAPSULE PO SCH (21:21)
[2024-01-07] MEDS: POTASSIUM CHLORIDE 20 MEQ TABLET PO SCH (21:22)
[2024-01-07] MEDS: 0.9 % SODIUM CHLORIDE 10 ML SYRINGE IV SCH (21:22)
[2024-01-07] MEDS: hydrOXYzine 25 MG TABLET PO SCH (21:22)
[2024-01-07] MEDS: ACETAMINOPHEN 325 MG TABLET PO PRN (23:08)
[2024-01-08 06:11] LABS: Basophils # (Auto) 0.04 K/mcL (0.00-0.30); Basophils % (Auto) 0.6 % (0.0-2.0); Eosinophils # (Auto) 0.01 K/mcL (0.00-0.70); Eosinophils % (Auto) 0.1 % (0.0-7.0); Hematocrit 40.5 % (40.1-51.0); Hemoglobin 12.4 g/dL (13.7-17.5); Lymphocytes # (Auto) 0.57 K/mcL (1.50-4.80); Lymphocytes % (Auto) 8.2 % (15.5-49.0); Mean Cell Volume 93.1 fL (80.0-100.0); Mean Corpuscular HGB Conc 30.6 g/dL (31.0-36.0); Mean Platelet Volume 11.6 fL (8.8-12.5); Monocytes # (Auto) 0.53 K/mcL (0.10-0.90); Monocytes % (Auto) 7.6 % (1.0-12.0); Neutrophils % (Auto) 83.1 % (38.0-78.0); Platelet Count 183 K/mcL (140-440); RBC 4.35 M/mcL (4.63-6.08); Red Cell Distribution Width 16.3 % (11.5-14.5)
[2024-01-08 06:25] LABS: ALT/SGPT 36 U/L (<40); AST/SGOT 52 U/L (<40); Albumin 3.6 gm/dL (3.2-5.2); Albumin/Globulin Ratio 1.3 (1.0-2.3); Alkaline Phosphatase 91 U/L (39-117); Bilirubin,Total 0.4 mg/dL (0.1-1.0); Blood Urea Nitrogen 13 mg/dL (8-23); Calcium 8.6 mg/dL (8.6-10.4); Carbon Dioxide 27 mmol/L (22-30); Chloride 102 mmol/L (96-108); Globulin 2.8 gm/dL (2.2-3.7); Glomerular Filtration Rate 70; Glucose 93 mg/dL (70-105)
[2024-01-08] MEDS: AMIODARONE HCL 200 MG TABLET PO SCH (08:09)
[2024-01-08] MEDS: TAMSULOSIN 0.4 MG CAPSULE PO SCH (08:09)
[2024-01-08] MEDS: CHOLESTYRAMINE/ASPARTAME 4 GM POWD.PACK PO SCH (08:09)
[2024-01-08] MEDS: MULTIVIT,THER IRON,CA,FA & MIN 1 TABLET PO SCH (08:09)
[2024-01-08] MEDS: cefTRIAXone 2 GM in DEXTROSE 5% IN WATER 50 ML IV SCH (08:10)
[2024-01-08] MEDS ORDERED: ENOXAPARIN 40 MG/0.4 ML SYRINGE SQ SCH (09:00)
[2024-01-08] MEDS: DILTIAZEM 25 MG/5 ML VIAL IV SCH (11:51)
[2024-01-08] MEDS: DILTIAZEM 25 MG/5 ML VIAL IV ONE (13:07)
[2024-01-08] MEDS ORDERED: DILTIAZEM 125 MG in DEXTROSE 5% IN WATER 100 ML IV SCH (17:00)
[2024-01-08] MEDS: traZODone HCL 50 MG TABLET PO PRN (21:45)
[2024-01-09 05:24] LABS: Basophils # (Auto) 0.04 K/mcL (0.00-0.30); Basophils % (Auto) 0.5 % (0.0-2.0); Eosinophils # (Auto) 0.26 K/mcL (0.00-0.70); Eosinophils % (Auto) 3.1 % (0.0-7.0); Hematocrit 40.8 % (40.1-51.0); Hemoglobin 12.3 g/dL (13.7-17.5); Lymphocytes # (Auto) 0.96 K/mcL (1.50-4.80); Lymphocytes % (Auto) 11.5 % (15.5-49.0); Mean Cell Volume 93.8 fL (80.0-100.0); Mean Corpuscular HGB Conc 30.1 g/dL (31.0-36.0); Mean Platelet Volume 11.8 fL (8.8-12.5); Monocytes # (Auto) 1.03 K/mcL (0.10-0.90); Monocytes % (Auto) 12.4 % (1.0-12.0); Neutrophils % (Auto) 72.1 % (38.0-78.0); Platelet Count 200 K/mcL (140-440); RBC 4.35 M/mcL (4.63-6.08); Red Cell Distribution Width 16.4 % (11.5-14.5); WBC 8.3 K/mcL (4.5-11.0)
[2024-01-09 05:50] LABS: ALT/SGPT 50 U/L (<40); AST/SGOT 48 U/L (<40); Albumin 3.7 gm/dL (3.2-5.2); Albumin/Globulin Ratio 1.1 (1.0-2.3); Alkaline Phosphatase 109 U/L (39-117); Bilirubin,Total 0.3 mg/dL (0.1-1.0); Blood Urea Nitrogen 14 mg/dL (8-23); Calcium 8.2 mg/dL (8.6-10.4); Carbon Dioxide 27 mmol/L (22-30); Chloride 102 mmol/L (96-108); Globulin 3.3 gm/dL (2.2-3.7); Glomerular Filtration Rate 89; Glucose 110 mg/dL (70-105)
[2024-01-09] MEDS: LISINOPRIL 20 MG TABLET PO SCH (08:24)
[2024-01-09] MEDS: FAMOTIDINE 20 MG TABLET PO SCH (08:24)
[2024-01-09] MEDS: FUROSEMIDE 40 MG TABLET PO SCH (08:33)
[2024-01-09] MEDS: IPRATROPIUM/ALBUTEROL 3 ML AMPUL.NEB NEB PRN (10:02)
[2024-01-09] MEDS: morphine 2 MG/ML VIAL IV PRN (18:46)
[2024-01-09] MEDS: ONDANSETRON 4 MG/2 ML VIAL IV PRN (18:47)
[2024-01-09] MEDS: morphine 2 MG/ML VIAL ONE ×2 (18:48→18:58)
[2024-01-09] MEDS: HYDROcodone/APAP 5/325MG TABLET PO PRN (20:35)
[2024-01-10] MEDS: morphine 2 MG/ML VIAL IV PRN (00:55)
[2024-01-10 07:00] LABS: ALT/SGPT 53 U/L (<40); AST/SGOT 52 U/L (<40); Albumin 3.7 gm/dL (3.2-5.2); Alkaline Phosphatase 110 U/L (39-117); Bilirubin,Direct < 0.2 mg/dL (0-0.3); Bilirubin,Total 0.3 mg/dL (0.1-1.0); Blood Urea Nitrogen 14 mg/dL (8-23); Calcium 8.8 mg/dL (8.6-10.4); Carbon Dioxide 29 mmol/L (22-30); Chloride 102 mmol/L (96-108); Globulin 3.6 gm/dL (2.2-3.7); Glomerular Filtration Rate 79; Glucose 94 mg/dL (70-105); Lactate Dehydrogenase 264 U/L (135-225); Phosphorous 3.7 mg/dL (2.5-4.5); Triglycerides 90 mg/dL (<150); Uric Acid 6.5 mg/dL (2.5-8.0)
[2024-01-10] MEDS ORDERED: METOPROLOL TARTRATE 5 MG/5 ML VIAL IV PRN (07:55)
[2024-01-10] MEDS ORDERED: DILTIAZEM 125 MG in DEXTROSE 5% IN WATER 100 ML IV PRN ×2 (08:03→08:05)
[2024-01-10] MEDS: METOPROLOL TARTRATE 25 MG TABLET PO SCH (08:58)
[2024-01-10] MEDS: DILTIAZEM 125 MG in DEXTROSE 5% IN WATER 100 ML IV SCH (10:12)
[2024-01-10 10:13] LABS: Hematocrit 41.2 % (40.1-51.0); Hemoglobin 12.2 g/dL (13.7-17.5); Mean Cell Volume 95.6 fL (80.0-100.0); Mean Corpuscular HGB Conc 29.6 g/dL (31.0-36.0); Mean Platelet Volume 12.8 fL (8.8-12.5); Platelet Count 198 K/mcL (140-440); RBC 4.31 M/mcL (4.63-6.08); Red Cell Distribution Width 16.9 % (11.5-14.5); WBC 6.5 K/mcL (4.5-11.0)
[2024-01-10 10:46] LABS: Band Neutrophils % 1 % (0-10); Eosinophils % (Manual) 2 % (0-7); Lymphocytes % 18 % (15-49); Monocytes % (Manual) 14 % (1-12); Platelet Estimate NORMAL (Normal); RBC Morphology NORMAL (Normal); Reactive Lymphocytes 4 % (0-2); Segmented Neutrophils % 61 % (38-78)
[2024-01-10] MEDS: FUROSEMIDE 20 MG/2 ML VIAL IV ONE (11:48)
[2024-01-11 06:11] LABS: ALT/SGPT 64 U/L (<40); AST/SGOT 65 U/L (<40); Albumin 3.5 gm/dL (3.2-5.2); Alkaline Phosphatase 119 U/L (39-117); Bilirubin,Direct < 0.2 mg/dL (0-0.3); Bilirubin,Total 0.3 mg/dL (0.1-1.0); Blood Urea Nitrogen 19 mg/dL (8-23); Calcium 8.7 mg/dL (8.6-10.4); Carbon Dioxide 29 mmol/L (22-30); Chloride 101 mmol/L (96-108); Globulin 3.4 gm/dL (2.2-3.7); Glomerular Filtration Rate 63; Glucose 89 mg/dL (70-105); Lactate Dehydrogenase 346 U/L (135-225); Phosphorous 3.7 mg/dL (2.5-4.5); Triglycerides 84 mg/dL (<150); Uric Acid 7.1 mg/dL (2.5-8.0)
[2024-01-11] MEDS: FUROSEMIDE 20 MG/2 ML VIAL IV ONE (10:20)
[2024-01-12 07:00] LABS: ALT/SGPT 68 U/L (<40); AST/SGOT 49 U/L (<40); Albumin 3.6 gm/dL (3.2-5.2); Albumin/Globulin Ratio 1.2 (1.0-2.3); Alkaline Phosphatase 127 U/L (39-117); Bilirubin,Direct < 0.2 mg/dL (0-0.3); Bilirubin,Total 0.3 mg/dL (0.1-1.0); Blood Urea Nitrogen 18 mg/dL (8-23); Calcium 8.7 mg/dL (8.6-10.4); Carbon Dioxide 33 mmol/L (22-30); Chloride 100 mmol/L (96-108); Globulin 3.1 gm/dL (2.2-3.7); Glomerular Filtration Rate 89; Glucose 89 mg/dL (70-105); Lactate Dehydrogenase 275 U/L (135-225); Triglycerides 75 mg/dL (<150); Uric Acid 7.8 mg/dL (2.5-8.0)
== END 2024-01-12 11:54 | DRG 871 ==
LOC: ED 11:56 → ICU 17:50 → MEDSUR 01-11 16:45
PROVIDERS: ADMIT Internal Medicine; ATTEND Internal Medicine

== ENCOUNTER 2025-08-29 00:16 | Inpatient (IN) ==
[2025-08-29] MEDS ORDERED: IOPAMIDOL 100 ML BOTTLE IV ONE (00:17)
[2025-08-29] MEDS: ONDANSETRON 4 MG/2 ML VIAL IV ONE (00:47)
[2025-08-29] MEDS: 0.9 % SODIUM CHLORIDE 1,000 ML IV ONE (00:48)
[2025-08-29 01:15] LABS: Basophils # (Auto) 0.02 K/mcL (0.00-0.30); Basophils % (Auto) 0.1 % (0.0-2.0); Eosinophils # (Auto) 0 K/mcL (0.00-0.70); Eosinophils % (Auto) 0 % (0.0-7.0); Hematocrit 38.9 % (40.1-51.0); Hemoglobin 12.2 g/dL (13.7-17.5); Lymphocytes # (Auto) 0.39 K/mcL (1.50-4.80); Lymphocytes % (Auto) 2.0 % (15.5-49.0); Mean Corpuscular HGB Conc 31.4 g/dL (31.0-36.0); Monocytes # (Auto) 1.34 K/mcL (0.10-0.90); Monocytes % (Auto) 6.8 % (1.0-12.0); Neutrophils % (Auto) 90.5 % (38.0-78.0); Platelet Count 205 K/mcL (140-440); RBC 4.08 M/mcL (4.63-6.08); WBC 19.7 K/mcL (4.5-11.0)
[2025-08-29 01:36] LABS: ALT/SGPT 33 U/L (<40); AST/SGOT 36 U/L (<40); Albumin 3.9 gm/dL (3.2-5.2); Albumin/Globulin Ratio 1.6 (1.0-2.3); Alkaline Phosphatase 84 U/L (39-117); Anion Gap 9.0 (8.0-16.0); Bilirubin,Total 0.4 mg/dL (0.1-1.0); Blood Urea Nitrogen 29 mg/dL (8-23); Calcium 9.3 mg/dL (8.6-10.4); Carbon Dioxide 28 mmol/L (22-30); Chloride 100 mmol/L (96-108); Globulin 2.5 gm/dL (2.2-3.7); Glucose 119 mg/dL (70-105); Potassium 5.1 mmol/L (3.3-5.1); Sodium 137 mmol/L (133-145)
[2025-08-29 03:10] LABS: Bacteria,Urine 0 /hpf (0); Bilirubin,Urine NEGATIVE (Negative); Calcium Oxalate Crystals,Urine Many /hpf; Color,Urine YELLOW; Glucose,Urine (UA) NEGATIVE (Negative); Ketones,Urine TRACE mg/dL (Negative); Leukocyte Esterase,Urine SMALL /uL (Negative); PH,Urine 5.5 (5.0-9.0); Protein,Urine 100 mg/dL (Negative); Specific Gravity,Urine 1.025 (1.000-1.035); Urobilinogen,Urine 0.2 mg/dL
[2025-08-29] MEDS ORDERED: POLYETHYLENE GLYCOL 3350 17 GM PACKET PO PRN ×2 (03:25→20:24)
[2025-08-29] MEDS ORDERED: ACETAMINOPHEN 325 MG TABLET PO PRN (03:25)
[2025-08-29] MEDS: cefTRIAXone 1 GM VIAL IV ONE (03:28)
[2025-08-29] MEDS: AZITHROMYCIN 500 MG in DEXTROSE 5% IN WATER 250 ML IV ONE (03:29)
[2025-08-29 04:58] LABS: C-Reactive Protein 4.51 mg/dL (0.03-0.80)
[2025-08-29] MEDS: LACTATED RINGERS 1,000 ML IV SCH (05:50)
[2025-08-29] MEDS: IPRATROPIUM/ALBUTEROL 3 ML AMPUL.NEB NEB SCH (06:55)
[2025-08-29 07:52] LABS: Basophils # (Auto) 0.04 K/mcL (0.00-0.30); Basophils % (Auto) 0.2 % (0.0-2.0); Eosinophils # (Auto) 0 K/mcL (0.00-0.70); Eosinophils % (Auto) 0 % (0.0-7.0); Hematocrit 38.7 % (40.1-51.0); Hemoglobin 12.1 g/dL (13.7-17.5); Lymphocytes # (Auto) 0.50 K/mcL (1.50-4.80); Lymphocytes % (Auto) 2.2 % (15.5-49.0); Mean Corpuscular HGB Conc 31.3 g/dL (31.0-36.0); Monocytes # (Auto) 0.84 K/mcL (0.10-0.90); Monocytes % (Auto) 3.7 % (1.0-12.0); Neutrophils % (Auto) 93.5 % (38.0-78.0); Platelet Count 194 K/mcL (140-440); RBC 4.05 M/mcL (4.63-6.08); WBC 22.5 K/mcL (4.5-11.0)
[2025-08-29 08:10] LABS: Phosphorous 4.0 mg/dL (2.5-4.5)
[2025-08-29 08:11] LABS: ALT/SGPT 38 U/L (<40); AST/SGOT 54 U/L (<40); Albumin 3.8 gm/dL (3.2-5.2); Albumin/Globulin Ratio 1.4 (1.0-2.3); Alkaline Phosphatase 79 U/L (39-117); Anion Gap 12.0 (8.0-16.0); Bilirubin,Total 0.5 mg/dL (0.1-1.0); Blood Urea Nitrogen 29 mg/dL (8-23); Calcium 8.9 mg/dL (8.6-10.4); Carbon Dioxide 27 mmol/L (22-30); Chloride 98 mmol/L (96-108); Globulin 2.7 gm/dL (2.2-3.7); Glucose 102 mg/dL (70-105); Potassium 5.3 mmol/L (3.3-5.1); Sodium 137 mmol/L (133-145)
[2025-08-29] MEDS: LEVOFLOXACIN 750 MG/150 ML BAG IV SCH (08:32)
[2025-08-29] MEDS: APIXABAN 5 MG TABLET PO SCH (08:41)
[2025-08-29] MEDS: DOXYCYCLINE 100 MG in DEXTROSE 5% IN WATER 100 ML IV SCH (11:12)
[2025-08-29] MEDS: ONDANSETRON 4 MG/2 ML VIAL IV PRN (13:43)
[2025-08-29 19:02] LABS: Anion Gap 8.0 (8.0-16.0); Blood Urea Nitrogen 27 mg/dL (8-23); Calcium 8.7 mg/dL (8.6-10.4); Carbon Dioxide 27 mmol/L (22-30); Chloride 97 mmol/L (96-108); Glucose 135 mg/dL (70-105); Potassium 4.7 mmol/L (3.3-5.1); Sodium 132 mmol/L (133-145)
[2025-08-29] MEDS ORDERED: BISACODYL 10 MG SUPP.RECT PR PRN (19:55)
[2025-08-29] MEDS ORDERED: MAGNESIUM HYDROXIDE 30 ML ORAL.SUSP PO PRN (20:24)
[2025-08-29] MEDS: SENNOSIDES 1 TABLET PO SCH (20:35)
[2025-08-29] MEDS: GABAPENTIN 300 MG CAPSULE PO SCH (20:36)
[2025-08-29] MEDS: MELATONIN 3 MG TABLET PO SCH (20:36)
[2025-08-29] MEDS: TAMSULOSIN 0.4 MG CAPSULE PO SCH (20:37)
[2025-08-30] MEDS: IPRATROPIUM/ALBUTEROL 3 ML AMPUL.NEB NEB PRN (07:00)
[2025-08-30 07:16] LABS: ALT/SGPT 58 U/L (<40); AST/SGOT 93 U/L (<40); Albumin 3.3 gm/dL (3.2-5.2); Albumin/Globulin Ratio 1.2 (1.0-2.3); Alkaline Phosphatase 70 U/L (39-117); Anion Gap 8.0 (8.0-16.0); Bilirubin,Total 0.4 mg/dL (0.1-1.0); Blood Urea Nitrogen 23 mg/dL (8-23); C-Reactive Protein 23.10 mg/dL (0.03-0.80); Calcium 9.2 mg/dL (8.6-10.4); Carbon Dioxide 26 mmol/L (22-30); Chloride 100 mmol/L (96-108); Globulin 2.7 gm/dL (2.2-3.7); Glucose 95 mg/dL (70-105); Potassium 4.7 mmol/L (3.3-5.1); Sodium 134 mmol/L (133-145)
[2025-08-30 07:52] LABS: Phosphorous 3.2 mg/dL (2.5-4.5)
[2025-08-30] MEDS ORDERED: cefTRIAXone 1 GM VIAL IV ONE (09:00)
[2025-08-30] MEDS: FAMOTIDINE 20 MG TABLET PO SCH (09:17)
[2025-08-30] MEDS: LEVOTHYROXINE 100 MCG TABLET PO SCH (09:17)
[2025-08-30] MEDS: MULTIVIT,THER IRON,CA,FA & MIN 1 TABLET PO SCH (09:17)
[2025-08-30] MEDS: LORATADINE 10 MG TABLET PO SCH (09:18)
[2025-08-30] MEDS: CHOLESTYRAMINE ASPARTAME 4 GM PO SCH (13:34)
[2025-08-30 13:44] LABS: Basophils # (Auto) 0.04 K/mcL (0.00-0.30); Basophils % (Auto) 0.4 % (0.0-2.0); Eosinophils # (Auto) 0.06 K/mcL (0.00-0.70); Eosinophils % (Auto) 0.7 % (0.0-7.0); Hematocrit 36.2 % (40.1-51.0); Hemoglobin 11.4 g/dL (13.7-17.5); Lymphocytes # (Auto) 0.78 K/mcL (1.50-4.80); Lymphocytes % (Auto) 8.6 % (15.5-49.0); Mean Corpuscular HGB Conc 31.5 g/dL (31.0-36.0); Monocytes # (Auto) 0.70 K/mcL (0.10-0.90); Monocytes % (Auto) 7.7 % (1.0-12.0); Neutrophils % (Auto) 81.9 % (38.0-78.0); RBC 3.83 M/mcL (4.63-6.08); WBC 9.1 K/mcL (4.5-11.0)
[2025-08-30] MEDS: LACTATED RINGERS 1,000 ML IV SCH (14:30)
[2025-08-30] MEDS: IPRATROPIUM/ALBUTEROL 3 ML AMPUL.NEB NEB SCH (14:56)
[2025-08-31] MEDS: 0.9 % SODIUM CHLORIDE 10 ML SYRINGE IV SCH (04:28)
[2025-08-31 06:58] LABS: Basophils # (Auto) 0.01 K/mcL (0.00-0.30); Basophils % (Auto) 0.2 % (0.0-2.0); C-Reactive Protein 12.90 mg/dL (0.03-0.80); Eosinophils # (Auto) 0 K/mcL (0.00-0.70); Eosinophils % (Auto) 0 % (0.0-7.0); Hematocrit 37.7 % (40.1-51.0); Hemoglobin 11.6 g/dL (13.7-17.5); Lymphocytes # (Auto) 0.67 K/mcL (1.50-4.80); Lymphocytes % (Auto) 10.5 % (15.5-49.0); Mean Corpuscular HGB Conc 30.8 g/dL (31.0-36.0); Monocytes # (Auto) 0.47 K/mcL (0.10-0.90); Monocytes % (Auto) 7.3 % (1.0-12.0); Neutrophils % (Auto) 81.2 % (38.0-78.0); Platelet Count 157 K/mcL (140-440); RBC 3.93 M/mcL (4.63-6.08); WBC 6.4 K/mcL (4.5-11.0)
[2025-08-31 07:07] LABS: ALT/SGPT 59 U/L (<40); AST/SGOT 68 U/L (<40); Albumin 3.7 gm/dL (3.2-5.2); Albumin/Globulin Ratio 1.3 (1.0-2.3); Alkaline Phosphatase 74 U/L (39-117); Anion Gap 8.0 (8.0-16.0); Bilirubin,Total 0.2 mg/dL (0.1-1.0); Blood Urea Nitrogen 18 mg/dL (8-23); Calcium 10.0 mg/dL (8.6-10.4); Carbon Dioxide 27 mmol/L (22-30); Chloride 102 mmol/L (96-108); Globulin 2.8 gm/dL (2.2-3.7); Glucose 150 mg/dL (70-105); Potassium 4.9 mmol/L (3.3-5.1); Sodium 137 mmol/L (133-145)
[2025-08-31] MEDS: LEVOFLOXACIN 750 MG TABLET PO SCH (10:05)
[2025-09-01 06:29] LABS: Basophils # (Auto) 0.01 K/mcL (0.00-0.30); Basophils % (Auto) 0.1 % (0.0-2.0); Eosinophils # (Auto) 0 K/mcL (0.00-0.70); Eosinophils % (Auto) 0 % (0.0-7.0); Hematocrit 38.4 % (40.1-51.0); Hemoglobin 11.6 g/dL (13.7-17.5); Lymphocytes # (Auto) 1.01 K/mcL (1.50-4.80); Lymphocytes % (Auto) 12.6 % (15.5-49.0); Mean Corpuscular HGB Conc 30.2 g/dL (31.0-36.0); Monocytes # (Auto) 0.63 K/mcL (0.10-0.90); Monocytes % (Auto) 7.9 % (1.0-12.0); Neutrophils % (Auto) 78.4 % (38.0-78.0); Platelet Count 177 K/mcL (140-440); RBC 3.96 M/mcL (4.63-6.08); WBC 8.0 K/mcL (4.5-11.0)
[2025-09-01 06:50] LABS: C-Reactive Protein 5.56 mg/dL (0.03-0.80)
[2025-09-01 06:51] LABS: Phosphorous 2.3 mg/dL (2.5-4.5)
[2025-09-01 07:30] LABS: ALT/SGPT 60 U/L (<40); AST/SGOT 53 U/L (<40); Albumin 3.7 gm/dL (3.2-5.2); Albumin/Globulin Ratio 1.3 (1.0-2.3); Alkaline Phosphatase 72 U/L (39-117); Anion Gap 6.0 (8.0-16.0); Bilirubin,Total 0.2 mg/dL (0.1-1.0); Blood Urea Nitrogen 22 mg/dL (8-23); Calcium 10.3 mg/dL (8.6-10.4); Carbon Dioxide 29 mmol/L (22-30); Chloride 103 mmol/L (96-108); Globulin 2.8 gm/dL (2.2-3.7); Glucose 124 mg/dL (70-105); Potassium 4.8 mmol/L (3.3-5.1); Sodium 138 mmol/L (133-145)
[2025-09-01] MEDS: SODIUM PHOSPHATE 30 MMOL in DEXTROSE 5% IN WATER 500 ML IV SCH (09:25)
[2025-09-01] MEDS: IPRATROPIUM/ALBUTEROL 3 ML AMPUL.NEB NEB SCH (12:31)
[2025-09-02 07:09] LABS: Basophils # (Auto) 0.01 K/mcL (0.00-0.30); Basophils % (Auto) 0.1 % (0.0-2.0); Eosinophils # (Auto) 0 K/mcL (0.00-0.70); Eosinophils % (Auto) 0 % (0.0-7.0); Hematocrit 41.4 % (40.1-51.0); Hemoglobin 12.6 g/dL (13.7-17.5); Lymphocytes # (Auto) 1.68 K/mcL (1.50-4.80); Lymphocytes % (Auto) 18.6 % (15.5-49.0); Mean Corpuscular HGB Conc 30.4 g/dL (31.0-36.0); Monocytes # (Auto) 0.82 K/mcL (0.10-0.90); Monocytes % (Auto) 9.1 % (1.0-12.0); Neutrophils % (Auto) 69.6 % (38.0-78.0); Platelet Count 181 K/mcL (140-440); RBC 4.28 M/mcL (4.63-6.08); WBC 9.0 K/mcL (4.5-11.0)
[2025-09-02 07:40] LABS: ALT/SGPT 81 U/L (<40); AST/SGOT 59 U/L (<40); Albumin 3.9 gm/dL (3.2-5.2); Albumin/Globulin Ratio 1.3 (1.0-2.3); Alkaline Phosphatase 78 U/L (39-117); Anion Gap 9.0 (8.0-16.0); Bilirubin,Total 0.3 mg/dL (0.1-1.0); Blood Urea Nitrogen 24 mg/dL (8-23); Calcium 10.3 mg/dL (8.6-10.4); Carbon Dioxide 30 mmol/L (22-30); Chloride 103 mmol/L (96-108); Globulin 2.9 gm/dL (2.2-3.7); Glucose 87 mg/dL (70-105); Potassium 4.6 mmol/L (3.3-5.1); Sodium 142 mmol/L (133-145)
[2025-09-02 07:41] LABS: C-Reactive Protein 2.63 mg/dL (0.03-0.80)
[2025-09-02 12:26] VITALS: TEMP 96.3; O2SAT 90
== END 2025-09-02 13:00 | DRG 871 ==
LOC: ED 00:16 → MEDSUR 04:58
PROVIDERS: ADMIT Student in an Organized Health Care Education/Training Program; ATTEND Student in an Organized Health Care Education/Training Program